=== PATIENT | male | born 1995 | race Two or more races ===

== ENCOUNTER 2022-06-16 03:48 | Emergency (ER) | payer MEDICAID, SELFPAY ==
[2022-06-16 04:05] VITALS: BP 132/93; PULSE 78; RESP 18; TEMP 36.8; O2SAT 98; BMI 31.0
[2022-06-16 05:16] VITALS: BP 145/82; PULSE 88; RESP 22; TEMP 36.9; O2SAT 99
[2022-06-16 05:19] LABS: Basophils Absolute Auto 0.1 X10*3/uL (0.0-0.2); Basophils Percent Auto 0.8 % (0-2); Eosinophils Absolute Auto 0.2 X10*3/uL (0.0-0.4); Eosinophils Percent Auto 1.8 % (0-4); Hematocrit 47.2 % (42.0-52.0); Hemoglobin 15.6 g/dl (14.0-18.0); Imm Gran Abs Auto 0.06 X10*3/uL (0.00-0.03); Imm Gran Pct Auto 0.5 % (0.0-0.4); Lymphocytes Absolute Auto 3.2 X10*3/uL (1.2-4.9); Lymphocytes Percent Auto 25.7 % (20-40); MANUAL DIFF FLAG NO; Mean Corpuscular HGB Conc 33.1 g/dl (31.0-36.0); Mean Corpuscular Hemoglobin 26.5 pg (27.0-33.0); Mean Corpuscular Volume 80.1 fL (80.0-98.0); Mean Platelet Volume 10.1 fL (9.4-12.4); Monocytes Absolute Auto 0.6 X10*3/uL (0.1-1.2); Monocytes Percent Auto 4.4 % (2-11); Neutrophils Absolute Auto 8.4 x10*3/uL (2.0-8.3); Neutrophils Percent Auto 66.8 % (45-73); Platelet Count 272 X10*3/uL (160-400); Red Blood Count 5.89 X10*6/uL (4.60-5.80); Red Cell Distribution Width 15.3 % (11.0-16.0); White Blood Count 12.6 X10*3/uL (4.8-10.8)
[2022-06-16 05:39] LABS: Influenza A PCR NEGATIVE (Negative); Influenza B PCR NEGATIVE (Negative); Resp Syncy Virus RNA Qual PCR NEGATIVE (Negative); SARS COV2 PCR INHOUSE NEGATIVE (Negative)
--- NOTE | 2022-06-16 05:46 | ED_ITS ---
HPI - Headache General Chief Complaint: Headache Stated Complaint: migraine, n/v, acid reflux Time Seen by Provider: 06/16/22 05:03 Source: patient Mode of arrival: ambulatory History of Present Illness HPI Narrative: 26-year-old male with history migraine states that he developed a migraine yesterday that was normal in onset and progression and patient states that he took Excedrin, a total of 7 and then afterwards began developing epigastric discomfort with episodes of nausea and vomiting and did not contain blood. Otherwise, he denies any fever, chills, diarrhea. Related Data Previous Rx's Medication Instructions Recorded ketorolac 10 mg tablet 10 mg PO Q6H PRN pain 5 days #20 06/16/22 tabs Allergies Allergy/AdvReac Type Severity Reaction Status Date / Time SEASONAL ALLERGIES Allergy Unknown SNEEZING, Uncoded 06/16/22 04:05 ITCHY EYES Review of Systems Review of Systems: Pertinent positives and negatives as stated in HPI 10 point review of systems is otherwise negative. PMFSH Past Medical History Source: nursing notes reviewed Social History Social History Alcohol intake: current Alcohol intake frequency: a few times a month Smoked in Last 30 Days: Yes Use of substances other than those prescribed or required for medical reasons: Yes Substance Use Type: Marijuana Advance Directives: No Advance Directives Information Provided: No Physical Exam Vital Signs: Vital Signs: Last Vital Signs Temp 98.2 F 06/16/22 05:59 Pulse 93 06/16/22 05:59 Resp 18 06/16/22 05:59 BP 151/83 H 06/16/22 05:59 Pulse Ox 99 06/16/22 05:59 O2 Del Method 06/16/22 05:59 BMI result Body Mass Index 31.0 VITAL SIGNS: Reviewed. GENERAL: Well developed, well nourished, in moderate distress. HEAD: Normocephalic/atraumatic EYES: PERRLA, EOMI EARS: Ext canals without abnormality OROPHARYNX: no oral lesions noted, posterior pharynx clear LUNGS: Normal breath sounds. No adventitious sounds or accessory muscle use. SpO2<99> CARDIOVASCULAR: Regular rate and rhythm without noted murmurs ABDOMEN: Soft, non-tender, non-distended with bowel sounds. MUSCULOSKELETAL: No tenderness, deformities, or effusions noted on gross inspection. EXTREMITIES: No cyanosis, clubbing or edema. SKIN: Inspection of the skin reveals no rashes NEUROLOGIC: Alert and oriented x 4. Strength and sensation to light touch were grossly intact x 4. Course Course Course Narrative: 26-year-old male with history and clinical presentation consistent with initial headache that then was likely or treated with Excedrin leading to GI upset/gastritis as well as nausea and vomiting. I did check salicylate level which was undetectable, otherwise lab work is benign with a leukocytosis that is being attributed to stress/reactive response as patient is afebrile. Patient will receive IV fluids, Reglan/Benadryl/Zofran and once stomach settled will attempt GI cocktail. On re-evaluation patient is resting comfortably although he did vomit the GI cocktail I suspect that on attempting again patient will likely be able to tolerate. Will provide patient with a list of primary care providers and he is otherwise discharged home in stable condition. Medications Administered Discontinued Medications Generic Name Dose Route Start Last Admin Trade Name Freq PRN Reason Stop Dose Admin Al Hydroxide/Mg Hydroxide 30 ml 06/16/22 05:45 06/16/22 05:53 Magnesium Hydrox/Alum Hydrox 30 Ml Oral.Susp PO 06/16/22 05:46 30 ml ONCE ONE Administration Diphenhydramine HCl 25 mg 06/16/22 05:45 06/16/22 05:53 Diphenhydramine Hcl 50 Mg/Ml Vial IVPUSH 06/16/22 05:46 25 mg ONCE ONE Administration Sodium Chloride 1,000 mls @ 999 mls/hr 06/16/22 05:45 06/16/22 07:11 Ns IV 06/16/22 06:45 Infused .Q1H1M MAYLIN Infusion Lidocaine HCl 10 ml 06/16/22 05:45 06/16/22 05:53 Lidocaine Hcl Viscous 2 % 15 Ml Solution MUCOUS MEM 06/16/22 05:46 10 ml ONCE ONE Administration Metoclopramide HCl 10 mg 06/16/22 05:45 06/16/22 05:53 Metoclopramide Hcl 10 Mg/2 Ml Vial IVPUSH 06/16/22 05:46 10 mg ONCE ONE Administration Ondansetron HCl 4 mg 06/16/22 05:45 06/16/22 05:53 Ondansetron Hcl 4 Mg/2 Ml Vial IVPUSH 06/16/22 05:46 4 mg ONCE ONE Administration Medical Decision Making Lab Data Result Diagrams: 06/16/22 05:14 06/16/22 05:30 Labs: Lab Results 06/16/22 06/16/22 06/16/22 Range/Units 04:59 05:14 05:30 WBC 12.6 H (4.8-10.8) X10*3/uL RBC 5.89 H (4.60-5.80) X10*6/uL Hgb 15.6 (14.0-18.0) g/dl Hct 47.2 (42.0-52.0) % MCV 80.1 (80.0-98.0) fL MCH 26.5 L (27.0-33.0) pg MCHC 33.1 (31.0-36.0) g/dl RDW 15.3 (11.0-16.0) % Plt Count 272 (160-400) X10*3/uL MPV 10.1 (9.4-12.4) fL Immature Gran % (Auto) 0.5 H (0.0-0.4) % Neut % (Auto) 66.8 (45-73) % Lymph % (Auto) 25.7 (20-40) % [place] % (Auto) 4.4 (2-11) % Eos % (Auto) 1.8 (0-4) % Baso % (Auto) 0.8 (0-2) % Lymph # (Auto) 3.2 (1.2-4.9) X10*3/uL [place] # (Auto) 0.6 (0.1-1.2) X10*3/uL Eos # (Auto) 0.2 (0.0-0.4) X10*3/uL Baso # (Auto) 0.1 (0.0-0.2) X10*3/uL Abs Immat Gran (auto) 0.06 H (0.00-0.03) X10*3/uL Absolute Neuts (auto) 8.4 H (2.0-8.3) x10*3/uL Absolute Nucleated RBC 0.000 (0.0-0.012) X10*3/uL Nucleated RBC % (auto) 0.0 (0.0-0.2) /100WBC Sodium 137 (135-145) mmol/L Potassium 3.5 (3.3-5.1) mmol/L Chloride 99 (96-108) mmol/L Carbon Dioxide 25 (22-29) mmol/L Anion Gap 17 (12-20) BUN 17 H (9-16) mg/dL Creatinine 1.08 (0.5-1.4) mg/dL Estim Creat Clear Calc 118.0 Estimated GFR > 60 Random Glucose 129 H (60-115) mg/dL Calcium 9.8 (8.4-10.2) mg/dL Total Bilirubin 0.8 (0.0-1.0) mg/dL AST 26 (5-37) U/L ALT 36 (0-40) U/L Alkaline Phosphatase 91 (39-117) U/L Total Protein 8.3 H (6.5-8.0) g/dL Albumin 5.2 H (3.5-5.0) g/dL Lipase 13 (8-78) U/L Salicylates < 5.0 L (15-30) mg/dL Influenza Type A (PCR) NEGATIVE (Negative) Influenza Type B (PCR) NEGATIVE (Negative) RSV RNA Qual (PCR) NEGATIVE (Negative) SARS-CoV-2 RNA (RT-PCR) NEGATIVE (Negative) Discharge Plan Discharge Clinical Impression: Headache, Gastritis Patient Disposition: Home, Self-Care Instructions: Gastritis (ED), Diet for Stomach Ulcers and Gastritis (ED), General Headache (ED) Additional Instructions: 1. Tylenol 1000 mg, orally, every 6 hours as needed for pain control. Do not exceed 4000 mg within 24 hours. 2. Increase the amount of water intake. 3. You have been provided with a list potential primary care providers that are associated with [facility]. Return to the ER for worsening symptoms. Prescriptions: New ketorolac 10 mg tablet 10 mg PO Q6H PRN (Reason: pain) 5 Days Qty: 20 0RF Rx Instructions: Patient received Toradol in the emergency room.
[2022-06-16] MEDS: 0.9 % Sodium Chloride 1,000 ML 999 ML IV (05:52)
[2022-06-16] MEDS: Lidocaine HCl Viscous 2 % 15 ML SOLUTION 10 ML MUCOUS MEM (05:53)
[2022-06-16] MEDS: Metoclopramide HCl 10 MG/2 ML VIAL IVPUSH (05:53)
[2022-06-16] MEDS: diphenhydrAMINE HCL 50 MG/ML VIAL 25 MG IVPUSH (05:53)
[2022-06-16] MEDS: Magnesium Hydrox/Alum Hydrox 30 ML ORAL.SUSP PO (05:53)
[2022-06-16] MEDS: ondansetron HCL 4 MG/2 ML VIAL IVPUSH (05:53)
[2022-06-16 05:59] VITALS: BP 151/83; PULSE 93; RESP 18; TEMP 36.8; O2SAT 99
[2022-06-16 05:59] LABS: Alanine Aminotransferase 36 U/L (0-40); Albumin Level 5.2 g/dL (3.5-5.0); Alkaline Phosphatase 91 U/L (39-117); Anion Gap 17 (12-20); Aspartate Amino Transferase 26 U/L (5-37); Bilirubin Total 0.8 mg/dL (0.0-1.0); Blood Urea Nitrogen 17 mg/dL (9-16); Calcium 9.8 mg/dL (8.4-10.2); Carbon Dioxide 25 mmol/L (22-29); Chloride 99 mmol/L (96-108); Estimated Glomerular Filt Rate > 60; Glucose Random 129 mg/dL (60-115); Lipase 13 U/L (8-78); Potassium 3.5 mmol/L (3.3-5.1); Sodium 137 mmol/L (135-145); Total Protein 8.3 g/dL (6.5-8.0)
[2022-06-16 06:04] LABS: Salicylate < 5.0 mg/dL (15-30)
[2022-06-16 07:36] VITALS: BP 122/71; PULSE 75; RESP 16; O2SAT 99
[2022-06-16] MEDS: Ketorolac Tromethamine 30 MG/ML VIAL 15 MG IVPUSH (07:38)
[2022-06-16] MEDS: Sucralfate Oral Suspension 1 GM/10 ML ORAL.SUSP PO (07:38)
== END 2022-06-16 07:54 | disposition home or self-care (01) ==
PROVIDERS: Emergency Provider Student in an Organized Health Care Education/Training Program
DX: K29.00 Acute gastritis without bleeding (principal); R51.9 Headache, unspecified; Z20.822 Contact with and (suspected) exposure to COVID-19; Z79.899 Other long term (current) drug therapy
CPT/HCPCS: 0241U; 36415; 80053; 80179; 83690; 85025; 96361; 96374; 96375; 99284; 99285; J1200; J1885; J2405; J2765

== ENCOUNTER 2022-07-21 19:54 | Emergency (ER) | payer OTHER, SELFPAY ==
[2022-07-21 20:32] VITALS: BP 169/100; PULSE 102; RESP 20; TEMP 36.6; O2SAT 98; BMI 26.6
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
[2022-07-21] MEDS: Ketorolac Tromethamine 30 MG/ML VIAL IM (21:00)
[2022-07-21] MEDS: Lidocaine 4 % Patch ADH..PATCH 1 PATCH TRANSDERMA (21:00)
== END 2022-07-21 21:13 | disposition home or self-care (01) ==
PROVIDERS: Emergency Provider Emergency Medicine
DX: S39.012A Strain of muscle, fascia and tendon of lower back, initial encounter (principal); V43.62XA Car passenger injured in collision with other type car in traffic accident, initial encounter; Y93.89 Activity, other specified; Y92.414 Local residential or business street as the place of occurrence of the external cause; Y99.9 Unspecified external cause status
CPT/HCPCS: 96372; 99283; 99284; J1885

== ENCOUNTER 2022-12-27 08:47 | Emergency (ER) | payer MEDICAID, SELFPAY ==
[2022-12-27 09:01] VITALS: BP 113/76; PULSE 67; RESP 19; TEMP 36.6; O2SAT 98; BMI 29.5
--- NOTE | 2022-12-27 09:23 | ED.GENADULT ---
HPI - General Adult General Chief complaint: General Medical Stated complaint: thyroid meds ? Time Seen by Provider: 12/27/22 09:05 Source: patient Mode of arrival: ambulatory Limitations: no limitations History of Present Illness HPI narrative: Patient is a 27-year-old male with history of hypothyroid presenting to the emergency department with complaint of fatigue, bilateral hand swelling, mild facial swelling after running out of this levothyroxine 2 months ago. States he has not had a PCP in 5 years but that his pharmacy had continued to fill his medication. Denies any significant weight gain. He was incarcerated for approximatey 2 years and was medicated while there, was released 5 months ago with a 3 month supply. States he has attempted to establish care with a new PCP but does not currently have a follow up appointment scheduled. Denies any chest pain or shortness of breath, denies palpitations. Denies any lower extremity edema. MD complaint: fatigue, hand swelling Onset (ago): month(s) Location: upper extremity Radiation: non-radiation Severity: mild Relieving factors: none Exacerbating factors: none Associated symptoms: denies other symptoms Treatments prior to arrival: none Related Data Previous Rx's Medication Instructions Recorded ketorolac 10 mg tablet 10 mg PO Q6H PRN pain 5 days #20 06/16/22 tabs cyclobenzaprine 10 mg tablet 10 mg PO TID PRN muscle spasm #14 07/21/22 tabs ibuprofen 600 mg tablet 600 mg PO Q8H PRN pain #14 tabs 07/21/22 lidocaine 5 % topical patch 1 patch topical DAILY #15 ea 07/21/22 levothyroxine 200 mcg capsule 200 mcg PO DAILY #30 caps 12/27/22 Allergies Allergy/AdvReac Type Severity Reaction Status Date / Time SEASONAL ALLERGIES Allergy Unknown SNEEZING, Uncoded 12/27/22 09:01 ITCHY EYES Review of Systems Review of Systems: As per HPI. Yes all other systems are reviewed and are negative Constitutional: Constitutional: Reports as per HPI [facility] Social History Social History Alcohol intake: current Alcohol intake frequency: a few times a month Substance Use Type: Marijuana Advance Directives: No Advance Directives Information Provided: Yes Physical Exam ED Vital Signs: Vital Signs - 24 hr 12/27/22 09:01 Temperature 98 F Pulse Rate 67 Respiratory Rate 19 Blood Pressure 113/76 Pulse Oximetry 98 Oxygen Delivery Method Room Air BMI result Body Mass Index 29.5 Vital signs have been reviewed and appear to be correct. Blood pressure normal. Heart rate normal. Respiratory rate normal. Temperature normal. Oxygen saturation normal. Const General: cooperative, healthy appearing and no acute distress Orientation/consciousness: oriented to person, oriented to place, oriented to time and patient oriented x3 Limitations: no limitations HENMT Other: Very mild nonpitting facial edema appreciated Head: Yes normocephalic and Yes atraumatic Ears: external ears normal General nose exam: Normal external nose present Face and sinus: Yes face symmetric Mouth: oropharynx normal and moist mucous membranes Throat: Yes uvula midline Eyes General: appearance normal, both eyes and all related structures Pupils: Equal, round and reactive pupils present Neck Neck: Yes normal visual inspection and Yes supple Resp Effort & Inspection: normal respiratory effort and able to speak in complete sentences Auscultation: clear to auscultation bilaterally Cardio Rate: regular rate Rhythm: regular rhythm Heart sounds: S1 normal heart sound present and S2 normal heart sound present GI Palpation (GI): Soft to palpation and nontender Auscultation: normoactive bowel sounds General: Yes no CVA tenderness Back/Spine/Pelvis Back: no CVA tenderness Skin General skin exam: elasticity normal and turgor normal Neuro General: oriented to person, oriented to place, oriented to time, patient oriented x3, moves all extremities, no focal motor deficits and CN's II-XI intact bilaterally Cranial nerves: Yes Equal, round and reactive pupils present Cognition (Neuro): normal cognition Extrem General: Yes full ROM, Yes no pedal edema and Yes no calf tenderness Right upper extremity: Extremity exam: right hand Details: abnormal to inspection (mild non-pitting edema) Left upper extremity: hand Details: abnormal to inspection (mild non-pitting edema) Psych Mental Status: mental status grossly normal Affect: normal affect Thought process: Normal thought process present Medical Decision Making Medical Decision Making MDM Narrative: Patient is a 27-year-old male with history of hypothyroid presenting to the emergency department with complaint of fatigue, bilateral hand swelling, mild facial swelling after running out of this levothyroxine 2 months ago. On exam patient is awake, A+Ox3, VS WNL, afebrile, normal neurological exam without focal deficits, very slight facial edema appreciated, mild non-pitting edema to bilateral hands, LS CTA, abdomen is soft and nontender, no lower extremity edema. Given reported symptoms and physical exam findings, differential includes abnormal TSH, electrolyte abnormality, impaired renal function. Plan: CBC, BMP, TSH with reflex T4 Labs notable for elevated TSH with low free T4, otherwise unremarkable. Will medicate patient with levothyroxine here per his request and prescribe 30 day supply. Last dose filled in June of this year was 200mcg daily. Instructed patient to continue to attempt to establish care with PCP and set up initial visit. Will also refer to endocrinology. Return precautions discussed at bedside. Patient verbalized understanding of and agreement with plan. Differential Diagnosis Differential Diagnoses: The differential diagnosis associated with the presentation includes abnormal TSH, electrolyte abnormality, impaired renal function. Lab Data MDM Lab Attestation statement: I reviewed the patient's lab results. See above. 12/27/22 09:45 12/27/22 09:46 Labs: Lab Results 12/27/22 12/27/22 Range/Units 09:45 09:46 WBC 7.6 (4.8-10.8) X10*3/uL RBC 5.18 (4.60-5.80) X10*6/uL Hgb 14.7 (14.0-18.0) g/dl Hct 43.6 (42.0-52.0) % MCV 84.2 (80.0-98.0) fL MCH 28.4 (27.0-33.0) pg MCHC 33.7 (31.0-36.0) g/dl RDW 16.6 H (11.0-16.0) % Plt Count 261 (160-400) X10*3/uL MPV 10.5 (9.4-12.4) fL Immature Gran % (Auto) 0.3 (0.0-0.4) % Neut % (Auto) 46.8 (45-73) % Lymph % (Auto) 44.3 H (20-40) % [place] % (Auto) 4.3 (2-11) % Eos % (Auto) 3.4 (0-4) % Baso % (Auto) 0.9 (0-2) % Lymph # (Auto) 3.4 (1.2-4.9) X10*3/uL [place] # (Auto) 0.3 (0.1-1.2) X10*3/uL Eos # (Auto) 0.3 (0.0-0.4) X10*3/uL Baso # (Auto) 0.1 (0.0-0.2) X10*3/uL Abs Immat Gran (auto) 0.02 (0.00-0.03) X10*3/uL Absolute Neuts (auto) 3.6 (2.0-8.3) x10*3/uL Absolute Nucleated RBC 0.000 (0.0-0.012) X10*3/uL Nucleated RBC % (auto) 0.0 (0.0-0.2) /100WBC Sodium 141 (135-145) mmol/L Potassium 3.9 (3.3-5.1) mmol/L Chloride 106 (96-108) mmol/L Carbon Dioxide 24 (22-29) mmol/L Anion Gap 15 (12-20) BUN 18 H (9-16) mg/dL Creatinine 1.24 (0.5-1.4) mg/dL Estim Creat Clear Calc 99.6 Estimated GFR > 60 Random Glucose 96 (60-115) mg/dL Calcium 9.7 (8.4-10.2) mg/dL TSH 33.72 H (0.32-4.0) uIU/mL Free T4 < 0.42 L (0.71-1.85) ng/dL External Record Review External record reviewed: Inpatient record, Office record and Outpatient record Prescription Management I considered prescription management with: Other (levothyroxine) Chronic Conditions Patient?s care impacted by: Other (hypothyroid) Discharge Plan Discharge Clinical Impression: Abnormal finding on thyroid function test Patient Disposition: Home, Self-Care Instructions: Hypothyroidism (ED) Additional Instructions: You were evaluated in the emergency department today after running out of your thyroid medication. Your prescription is being filled for a 30 day supply. It is important that you establish care with a primary care provider immediately. You are also being referred to endocrinology, please contact them on Thursday. Prescriptions: New levothyroxine 200 mcg capsule 200 mcg PO DAILY Qty: 30 0RF No Action cyclobenzaprine 10 mg tablet 10 mg PO TID PRN (Reason: muscle spasm) Qty: 14 0RF ibuprofen 600 mg tablet 600 mg PO Q8H PRN (Reason: pain) Qty: 14 0RF lidocaine 5 % adhesive patch,medicated 1 patch topical DAILY Qty: 15 0RF Rx Instructions: leave on most painful area for up to 12 hrs ketorolac 10 mg tablet 10 mg PO Q6H PRN (Reason: pain) 5 Days Qty: 20 0RF Rx Instructions: Patient received Toradol in the emergency room. Referrals: [facility] [Provider Group]
== END 2022-12-27 11:37 | disposition home or self-care (01) ==
PROVIDERS: Emergency Provider Emergency Medicine Emergency Medical Services
DX: E03.9 Hypothyroidism, unspecified (principal); Z76.0 Encounter for issue of repeat prescription
CPT/HCPCS: 36415; 80048; 84439; 84443; 85025; 99283

== ENCOUNTER 2023-03-15 19:50 | Emergency (ER) | payer MEDICAID, SELFPAY ==
[2023-03-15 20:01] VITALS: BP 141/79; PULSE 82; RESP 20; TEMP 36.6; O2SAT 99; BMI 27.4
--- NOTE | 2023-03-15 20:06 | ED.GENADULT ---
HPI - General Adult General Chief complaint: General Medical Stated complaint: needs thyroid med Time Seen by Provider: 03/15/23 22:23 Source: patient Mode of arrival: ambulatory Limitations: no limitations History of Present Illness HPI narrative: Patient is a 27-year-old male with history of hypothyroid presenting to the emergency department with complaint of decreased appetite, intermittent diarrhea and sweating after running out of his thyroid medication. Patient was seen in this emergency department for same on 12/27/2022 and given a 30 day supply of his thyroid medication. Patient reports that he had an appointment with a new primary care provider on Thursday but did not realize that he needed to confirm the appointment and therefore the appointment was canceled. He states that he has since call the office to clarify and they are working on obtaining an appointment for him this coming week. He denies any chest pain, palpitations, or shortness of breath. Denies any significant weight loss or gain. Denies any abdominal pain, nausea or vomiting. Denies fevers. complaint: Ran out of medication Onset (ago): week(s) Treatments prior to arrival: none Related Data Previous Rx's Medication Instructions Recorded ketorolac 10 mg tablet 10 mg PO Q6H PRN pain 5 days #20 06/16/22 tabs cyclobenzaprine 10 mg tablet 10 mg PO TID PRN muscle spasm #14 07/21/22 tabs ibuprofen 600 mg tablet 600 mg PO Q8H PRN pain #14 tabs 07/21/22 lidocaine 5 % topical patch 1 patch topical DAILY #15 ea 07/21/22 levothyroxine 200 mcg capsule 200 mcg PO DAILY #30 caps 12/27/22 levothyroxine 200 mcg capsule 200 mcg PO DAILY #30 caps 03/15/23 Allergies Allergy/AdvReac Type Severity Reaction Status Date / Time SEASONAL ALLERGIES Allergy Unknown SNEEZING, Uncoded 03/15/23 20:01 ITCHY EYES Review of Systems Review of Systems: As per HPI. Yes all other systems are reviewed and are negative Constitutional: Constitutional: Reports as per HPI [facility] Social History Social History Alcohol intake: current Alcohol intake frequency: a few times a month Smoked in Last 30 Days: No Use of substances other than those prescribed or required for medical reasons: Yes Substance Use Type: Marijuana Advance Directives: No Physical Exam ED Vital Signs: Vital Signs - 24 hr 03/15/23 20:01 Temperature 98 F Pulse Rate 82 Respiratory Rate 20 Blood Pressure 141/79 H Pulse Oximetry 99 Oxygen Delivery Method Room Air BMI result Body Mass Index 27.4 Vital signs have been reviewed and appear to be correct. Blood pressure slightly elevated. Heart rate normal. Respiratory rate normal. Temperature normal. Oxygen saturation normal. Const General: cooperative, healthy appearing and no acute distress Orientation/consciousness: oriented to person, oriented to place, oriented to time and patient oriented x3 Limitations: no limitations HENMT Head: Yes normocephalic and Yes atraumatic Ears: external ears normal General nose exam: Normal external nose present Face and sinus: Yes face symmetric Mouth: oropharynx normal and moist mucous membranes Throat: Yes uvula midline Eyes Pupils: Equal, round and reactive pupils present Neck Neck: Yes normal visual inspection and Yes supple Resp Effort & Inspection: normal respiratory effort and able to speak in complete sentences Auscultation: clear to auscultation bilaterally Cardio Rate: regular rate Rhythm: regular rhythm Heart sounds: S1 normal heart sound present and S2 normal heart sound present GI Palpation (GI): Soft to palpation and nontender Auscultation: normoactive bowel sounds General: Yes no CVA tenderness Back/Spine/Pelvis Back: no CVA tenderness Skin General skin exam: elasticity normal and turgor normal Neuro General: oriented to person, oriented to place, oriented to time, patient oriented x3, moves all extremities, no focal motor deficits and CN's II-XI intact bilaterally Cranial nerves: Yes Equal, round and reactive pupils present Cognition (Neuro): normal cognition Extrem General: Yes full ROM, Yes no pedal edema and Yes no calf tenderness Psych Mental Status: mental status grossly normal Affect: normal affect Thought process: Normal thought process present Course Course Course Narrative: RME: 27 yold male presents to the ED for medicatoin refill of levothyroxine and diarrhea, sweating, and loss of appeitite. patient states he has been without his LEvothryoxine for one month. Medical Decision Making Medical Decision Making [facility] Narrative: Patient is a 27-year-old male with history of hypothyroid presenting to the emergency department with complaint of decreased appetite, intermittent diarrhea and sweating after running out of his thyroid medication. On exam patient is awake, A+Ox3, VS WNL, afebrile, normal neurological exam without focal deficits, rate rhythm regular, lungs clear throughout, abdomen soft and nontender, no lower extremity edema. Given reported symptoms and physical exam findings, initial differential includes normal TSH, electrolyte abnormality, impaired renal function. Labs notable for elevated TSH with low free T4, otherwise unremarkable, COVID negative. Will prescribe another 30 day supply of levothyroxine at patient's previous dose. Instructed patient to continue to remain in contact with his new primary care office to obtain an appointment as soon as possible. Will again refer to endocrinology. Return precautions discussed at bedside. Patient verbalized understanding of and agreement with plan. Differential Diagnosis Differential Diagnoses: The differential diagnosis associated with the presentation includes As per [facility]. Lab Data [facility] Lab Attestation statement: I reviewed the patient's lab results. As per [facility]. 03/15/23 20:49 03/15/23 20:49 Labs: Lab Results 03/15/23 Range/Units 20:49 WBC 12.8 H (4.8-10.8) X10*3/uL RBC 4.68 (4.60-5.80) X10*6/uL Hgb 13.4 L (14.0-18.0) g/dl Hct 40.6 L (42.0-52.0) % MCV 86.8 (80.0-98.0) fL MCH 28.6 (27.0-33.0) pg MCHC 33.0 (31.0-36.0) g/dl RDW 13.9 (11.0-16.0) % Plt Count 302 (160-400) X10*3/uL MPV 9.7 (9.4-12.4) fL Immature Gran % (Auto) 0.3 (0.0-0.4) % Neut % (Auto) 62.8 (45-73) % Lymph % (Auto) 28.1 (20-40) % Morris % (Auto) 4.8 (2-11) % Eos % (Auto) 3.3 (0-4) % Baso % (Auto) 0.7 (0-2) % Lymph # (Auto) 3.6 (1.2-4.9) X10*3/uL Morris # (Auto) 0.6 (0.1-1.2) X10*3/uL Eos # (Auto) 0.4 (0.0-0.4) X10*3/uL Baso # (Auto) 0.1 (0.0-0.2) X10*3/uL Abs Immat Gran (auto) 0.04 H (0.00-0.03) X10*3/uL Absolute Neuts (auto) 8.0 (2.0-8.3) x10*3/uL Absolute Nucleated RBC 0.000 (0.0-0.012) X10*3/uL Nucleated RBC % (auto) 0.0 (0.0-0.2) /100WBC Sodium 139 (135-145) mmol/L Potassium 4.1 (3.3-5.1) mmol/L Chloride 101 (96-108) mmol/L Carbon Dioxide 28 (22-29) mmol/L Anion Gap 14 (12-20) BUN 15 (9-16) mg/dL Creatinine 1.07 (0.5-1.4) mg/dL Estim Creat Clear Calc 100.3 Estimated GFR > 60 Random Glucose 109 (60-115) mg/dL Calcium 10.0 (8.4-10.2) mg/dL Total Bilirubin 0.5 (0.0-1.0) mg/dL AST 17 (5-37) U/L ALT 12 (0-40) U/L Alkaline Phosphatase 55 (39-117) U/L Total Protein 7.9 (6.5-8.0) g/dL Albumin 4.6 (3.5-5.0) g/dL TSH 42.65 H (0.32-4.0) uIU/mL Free T4 < 0.42 L (0.71-1.85) ng/dL COVID-19 ([facility]ETH) Negative (Negative) COVID-19 Clin Com See Note External Record Review External record reviewed: Inpatient record, Office record and Outpatient record Prescription Management I considered prescription management with: Other (Levothyroxine) Chronic Conditions Patient?s care impacted by: Other (Hypothyroidism) Discharge Plan Discharge Clinical Impression: Abnormal finding on thyroid function test Patient Disposition: Home, Self-Care Instructions: Hypothyroidism (ED) Additional Instructions: You were evaluated in the emergency department today after running out of your thyroid medication. Your prescription is being filled for 30 day supply. It is important that you continue to attempt to establish care with a primary care provider immediately. You are again being referred to endocrinology and you can contact them if you are unable to obtain appointment with your primary care provider. Prescriptions: New levothyroxine 200 mcg capsule 200 mcg PO DAILY Qty: 30 0RF No Action cyclobenzaprine 10 mg tablet 10 mg PO TID PRN (Reason: muscle spasm) Qty: 14 0RF ibuprofen 600 mg tablet 600 mg PO Q8H PRN (Reason: pain) Qty: 14 0RF lidocaine 5 % adhesive patch,medicated 1 patch topical DAILY Qty: 15 0RF Rx Instructions: leave on most painful area for up to 12 hrs ketorolac 10 mg tablet 10 mg PO Q6H PRN (Reason: pain) 5 Days Qty: 20 0RF Rx Instructions: Patient received Toradol in the emergency room. levothyroxine 200 mcg capsule 200 mcg PO DAILY Qty: 30 0RF Referrals: [facility] [Provider Group] Discharge Date/Time: 03/15/23 23:25
[2023-03-15 20:54] LABS: MANUAL DIFF FLAG NO
[2023-03-15 20:55] LABS: Basophils Absolute Auto 0.1 X10*3/uL (0.0-0.2); Basophils Percent Auto 0.7 % (0-2); Eosinophils Absolute Auto 0.4 X10*3/uL (0.0-0.4); Eosinophils Percent Auto 3.3 % (0-4); Hematocrit 40.6 % (42.0-52.0); Hemoglobin 13.4 g/dl (14.0-18.0); Imm Gran Abs Auto 0.04 X10*3/uL (0.00-0.03); Imm Gran Pct Auto 0.3 % (0.0-0.4); Lymphocytes Absolute Auto 3.6 X10*3/uL (1.2-4.9); Lymphocytes Percent Auto 28.1 % (20-40); Mean Corpuscular Hemoglobin 28.6 pg (27.0-33.0); Mean Corpuscular Volume 86.8 fL (80.0-98.0); Mean Platelet Volume 9.7 fL (9.4-12.4); Monocytes Absolute Auto 0.6 X10*3/uL (0.1-1.2); Monocytes Percent Auto 4.8 % (2-11); Neutrophils Percent Auto 62.8 % (45-73); Platelet Count 302 X10*3/uL (160-400); Red Blood Count 4.68 X10*6/uL (4.60-5.80); Red Cell Distribution Width 13.9 % (11.0-16.0); White Blood Count 12.8 X10*3/uL (4.8-10.8)
[2023-03-15 21:12] LABS: COVID-19 Test Negative (Negative); IDNOW Serial# 08D9AD1C
[2023-03-15 21:24] LABS: Alanine Aminotransferase 12 U/L (0-40); Albumin Level 4.6 g/dL (3.5-5.0); Alkaline Phosphatase 55 U/L (39-117); Anion Gap 14 (12-20); Aspartate Amino Transferase 17 U/L (5-37); Bilirubin Total 0.5 mg/dL (0.0-1.0); Blood Urea Nitrogen 15 mg/dL (9-16); Carbon Dioxide 28 mmol/L (22-29); Chloride 101 mmol/L (96-108); Creatinine Clr Calc Pharmacy 100.3; Estimated Glomerular Filt Rate > 60; Glucose Random 109 mg/dL (60-115); Potassium 4.1 mmol/L (3.3-5.1); Sodium 139 mmol/L (135-145); Total Protein 7.9 g/dL (6.5-8.0)
[2023-03-15 21:38] LABS: TSH reflex Free T4 42.65 uIU/mL (0.32-4.0)
[2023-03-15 22:17] LABS: Free T4 (Free Thyroxine) < 0.42 ng/dL (0.71-1.85)
--- NOTE | 2023-03-15 22:40 | PC.NURSE ---
Pt denies pain, states started thyroid medication X10 years ago, pt states hasn't taken prescribed dose X2 months due to insurance purposes.
== END 2023-03-15 23:25 | disposition home or self-care (01) ==
PROVIDERS: Physician Assistant; Emergency Provider Internal Medicine
DX: R79.89 Other specified abnormal findings of blood chemistry (principal); Z20.822 Contact with and (suspected) exposure to COVID-19; Z20.828 Contact with and (suspected) exposure to other viral communicable diseases; Z79.899 Other long term (current) drug therapy
CPT/HCPCS: 36415; 80053; 84439; 84443; 85025; 87635; 99283

== ENCOUNTER 2023-07-12 11:06 | Emergency (ER) | payer MEDICAID, SELFPAY ==
[2023-07-12 12:04] VITALS: BP 141/90; PULSE 82; RESP 12; TEMP 37.1; O2SAT 98; BMI 27.4
[2023-07-12 12:50] LABS: MANUAL DIFF FLAG NO
[2023-07-12 12:51] LABS: Basophils Absolute Auto 0.1 X10*3/uL (0.0-0.2); Basophils Percent Auto 1.1 % (0-2); Eosinophils Absolute Auto 0.2 X10*3/uL (0.0-0.4); Eosinophils Percent Auto 2.9 % (0-4); Hematocrit 44.8 % (42.0-52.0); Hemoglobin 15.1 g/dl (14.0-18.0); Imm Gran Abs Auto 0.04 X10*3/uL (0.00-0.03); Imm Gran Pct Auto 0.5 % (0.0-0.4); Lymphocytes Absolute Auto 3.2 X10*3/uL (1.2-4.9); Lymphocytes Percent Auto 38.1 % (20-40); Mean Corpuscular HGB Conc 33.7 g/dl (31.0-36.0); Mean Corpuscular Hemoglobin 28.8 pg (27.0-33.0); Mean Corpuscular Volume 85.5 fL (80.0-98.0); Mean Platelet Volume 9.8 fL (9.4-12.4); Monocytes Absolute Auto 0.4 X10*3/uL (0.1-1.2); Monocytes Percent Auto 4.6 % (2-11); Neutrophils Absolute Auto 4.4 x10*3/uL (2.0-8.3); Neutrophils Percent Auto 52.8 % (45-73); Platelet Count 249 X10*3/uL (160-400); Red Blood Count 5.24 X10*6/uL (4.60-5.80); Red Cell Distribution Width 15.9 % (11.0-16.0); White Blood Count 8.3 X10*3/uL (4.8-10.8)
[2023-07-12 13:12] LABS: Alanine Aminotransferase 40 U/L (0-40); Albumin Level 5.1 g/dL (3.5-5.0); Alkaline Phosphatase 51 U/L (39-117); Anion Gap 16 (12-20); Aspartate Amino Transferase 85 U/L (5-37); Bilirubin Total 0.6 mg/dL (0.0-1.0); Blood Urea Nitrogen 15 mg/dL (9-16); Calcium 9.8 mg/dL (8.4-10.2); Carbon Dioxide 26 mmol/L (22-29); Chloride 103 mmol/L (96-108); Creatinine Clr Calc Pharmacy 79.5; Estimated Glomerular Filt Rate > 60; Glucose Random 94 mg/dL (60-115); Potassium 3.6 mmol/L (3.3-5.1); Sodium 141 mmol/L (135-145); Total Protein 8.7 g/dL (6.5-8.0)
[2023-07-12 13:26] LABS: TSH reflex Free T4 33.16 uIU/mL (0.32-4.0)
[2023-07-12 14:59] LABS: Free T4 (Free Thyroxine) < 0.42 ng/dL (0.71-1.85)
--- NOTE | 2023-07-12 15:38 | ED_ITS ---
HPI - General Adult General Chief complaint: Skin/Abscess/Foreign Body Stated complaint: Medication refill Time Seen by Provider: 07/12/23 15:28 Source: patient Mode of arrival: ambulatory Limitations: no limitations History of Present Illness HPI narrative: 27-year-old male with history of hypothyroidism and eczema presents to ED for being without his thyroid medication levothyroxine the past 2 months. Patient also states exacerbation of dry rash on extremities. Patient's other complaint is dysuria and yellow discharge from penis after having unprotected sex 1 month ago. Patient denies any chest pain, shortness of breath, abdominal pain, eyes bulging, weight gain, hot cold temperatures change sensation. Related Data Previous Rx's Medication Instructions Recorded ketorolac 10 mg tablet 10 mg PO Q6H PRN pain 5 days #20 06/16/22 tabs cyclobenzaprine 10 mg tablet 10 mg PO TID PRN muscle spasm #14 07/21/22 tabs ibuprofen 600 mg tablet 600 mg PO Q8H PRN pain #14 tabs 07/21/22 lidocaine 5 % topical patch 1 patch topical DAILY #15 ea 07/21/22 levothyroxine 200 mcg capsule 200 mcg PO DAILY #30 caps 12/27/22 levothyroxine 200 mcg capsule 200 mcg PO DAILY #30 caps 03/15/23 doxycycline hyclate 100 mg capsule 100 mg PO BID 7 days #14 caps 07/12/23 hydrocortisone 1 % topical cream 1 appl topical BID PRN rash 2 07/12/23 weeks #28.4 grams levothyroxine 200 mcg capsule 200 mcg PO DAILY 30 days #30 caps 07/12/23 Allergies Allergy/AdvReac Type Severity Reaction Status Date / Time SEASONAL ALLERGIES Allergy Unknown SNEEZING, Uncoded 07/12/23 12:03 ITCHY EYES Review of Systems 2 Review of Systems: eczema rash, dyuria, and penile rash Yes all other systems are reviewed and are negative [facility] Social History Social History Alcohol intake: current Alcohol intake frequency: a few times a month Substance Use Type: Marijuana Advance Directives: No Physical Exam ED Vital Signs: Vital Signs - 24 hr 07/12/23 12:04 Temperature 98.8 F Pulse Rate 82 Respiratory Rate 12 Blood Pressure 141/90 H Pulse Oximetry 98 Oxygen Delivery Method Room Air BMI result Body Mass Index 27.4 Const General: cooperative, healthy appearing, comfortable, no acute distress, well developed, alert, awake and Physically active Orientation/consciousness: oriented to person, oriented to place, oriented to time and patient oriented x3 HENMT Other: Negative for facial swelling or eye bulging. Head: Yes normal to inspection, Yes No palpable skull fracture present, Yes normocephalic and Yes atraumatic Neck Neck: Yes normal visual inspection, Yes full ROM, Yes no lymphadenopathy, Yes no meningeal signs, Yes trachea midline, Yes supple, No anterior neck swelling and No tender Chest Chest palpation & inspection: normal inspection of the chest and normal palpation of entire chest wall Resp Effort & Inspection: normal respiratory effort and able to speak in complete sentences Auscultation: clear to auscultation bilaterally Cardio Jugular venous distension: no JVD Heart sounds: S1 normal heart sound present and S2 normal heart sound present GI Inspection: Yes normal to inspection, No abdominal wall ecchymosis and No distended Palpation (GI): Soft to palpation, not firm, nontender, no guarding and not rigid Other: refused exam General: No CVA tenderness and Yes no CVA tenderness Back/Spine/Pelvis Back: no CVA tenderness, No CVA tenderness and No back tenderness Skin Other: eczema like rash Full body images: 2 1. eczema like rash 2. eczema like rash 3. eczema like rash 4. eczema like rash 5. eczema like rash 6. eczema like rash Neuro General: oriented to person, oriented to place, oriented to time, patient oriented x3, gait normal, tone normal, moves all extremities, Normal light touch and pain sensation, no meningeal signs, no focal motor deficits, CN's II-XI intact bilaterally and normal sensation to monofilament Extrem General: Yes normal to inspection and Yes full ROM Psych Appearance: grossly normal, well kempt and not disheveled Medications Administered Discontinued Medications Generic Name Dose Route Start Last Admin Trade Name Freq PRN Reason Stop Dose Admin Ceftriaxone Sodium 500 mg/ 0 mg 07/12/23 16:17 07/12/23 16:56 Lidocaine HCl 1 ml IM 07/12/23 16:18 1 kit ONCE ONE Administration Medical Decision Making Medical Decision Making [facility] Narrative: 27-year-old male presents to the ED medication refill of liver thyroxine, eczema exacerbation rash of extremities, and also dysuria and penile discharge. Labs confirmed hypothyroidism. Patient not swollen in face extremities or abdomen. Patient refused a genitourinary exam. Patient agreeable to empiric treatment for STIs. Patient admits to unprotected sex last month. Differential Diagnosis Differential Diagnoses: The differential diagnosis associated with the presentation includes ( Medication refill, chlamydia, gonorrhea, hypothyroidism) Lab Data [facility] Lab Attestation statement: I reviewed the patient's lab results. 07/12/23 12:45 07/12/23 12:45 Labs: Lab Results 07/12/23 07/12/23 Range/Units 12:45 16:11 WBC 8.3 (4.8-10.8) X10*3/uL RBC 5.24 (4.60-5.80) X10*6/uL Hgb 15.1 (14.0-18.0) g/dl Hct 44.8 (42.0-52.0) % MCV 85.5 (80.0-98.0) fL MCH 28.8 (27.0-33.0) pg MCHC 33.7 (31.0-36.0) g/dl RDW 15.9 (11.0-16.0) % Plt Count 249 (160-400) X10*3/uL MPV 9.8 (9.4-12.4) fL Immature Gran % (Auto) 0.5 H (0.0-0.4) % Neut % (Auto) 52.8 (45-73) % Lymph % (Auto) 38.1 (20-40) % Cowley % (Auto) 4.6 (2-11) % Eos % (Auto) 2.9 (0-4) % Baso % (Auto) 1.1 (0-2) % Lymph # (Auto) 3.2 (1.2-4.9) X10*3/uL Cowley # (Auto) 0.4 (0.1-1.2) X10*3/uL Eos # (Auto) 0.2 (0.0-0.4) X10*3/uL Baso # (Auto) 0.1 (0.0-0.2) X10*3/uL Abs Immat Gran (auto) 0.04 H (0.00-0.03) X10*3/uL Absolute Neuts (auto) 4.4 (2.0-8.3) x10*3/uL Absolute Nucleated RBC 0.000 (0.0-0.012) X10*3/uL Nucleated RBC % (auto) 0.0 (0.0-0.2) /100WBC Sodium 141 (135-145) mmol/L Potassium 3.6 (3.3-5.1) mmol/L Chloride 103 (96-108) mmol/L Carbon Dioxide 26 (22-29) mmol/L Anion Gap 16 (12-20) BUN 15 (9-16) mg/dL Creatinine 1.35 (0.5-1.4) mg/dL Estim Creat Clear Calc 79.5 Estimated GFR > 60 Random Glucose 94 (60-115) mg/dL Calcium 9.8 (8.4-10.2) mg/dL Total Bilirubin 0.6 (0.0-1.0) mg/dL AST 85 H (5-37) U/L ALT 40 (0-40) U/L Alkaline Phosphatase 51 (39-117) U/L Total Protein 8.7 H (6.5-8.0) g/dL Albumin 5.1 H (3.5-5.0) g/dL TSH 33.16 H (0.32-4.0) uIU/mL Free T4 < 0.42 L (0.71-1.85) ng/dL Urine Color Yellow Urine Appearance Clear Urine pH 7.5 (5.0-9.0) Ur Specific [place] 1.015 (1.005-1.025) Urine Protein Negative (Neg-Trace) mg/dL Urine Glucose (UA) Negative (Negative) mg/dL Urine Ketones Negative (Negative) mg/dL Urine Blood Negative (Negative) Urine Nitrite Negative (Negative) Ur Leukocyte Esterase Negative (Negative) External Record Review External record reviewed: Other ( prior visits) Prescription Management I considered prescription management with: Other ( hypothyroidism) Discharge Plan Discharge Clinical Impression: Medication refill, Eczema, Dysuria, Hypothyroidism Patient Disposition: Home, Self-Care Instructions: Hypothyroidism (ED), Dysuria (ED), Dermatitis (ED), Medicine Refill (ED) Additional Instructions: Recommend follow up with Primary care provider and medical coding auditor. Return to the ED immediately for any chest pain, shortness of breath, eye bulging, fever, swelling of extremities and abdomen, nuasea, vomitting, worsening rash, testicular pain, penile lesions, penile discharrge, back pain, chills, or any other concerning symptoms. Prescriptions: New levothyroxine 200 mcg capsule 200 mcg PO DAILY 30 Days Qty: 30 0RF hydrocortisone 1 % cream 1 appl topical BID PRN (Reason: rash) 14 Days Qty: 28.4 0RF doxycycline hyclate 100 mg capsule 100 mg PO BID 7 Days Qty: 14 0RF No Action cyclobenzaprine 10 mg tablet 10 mg PO TID PRN (Reason: muscle spasm) Qty: 14 0RF ibuprofen 600 mg tablet 600 mg PO Q8H PRN (Reason: pain) Qty: 14 0RF lidocaine 5 % adhesive patch,medicated 1 patch topical DAILY Qty: 15 0RF Rx Instructions: leave on most painful area for up to 12 hrs ketorolac 10 mg tablet 10 mg PO Q6H PRN (Reason: pain) 5 Days Qty: 20 0RF Rx Instructions: Patient received Toradol in the emergency room. levothyroxine 200 mcg capsule 200 mcg PO DAILY Qty: 30 0RF levothyroxine 200 mcg capsule 200 mcg PO DAILY Qty: 30 0RF Interventions: ED Discharge Assessment Last Done: 07/12/23 17:02 Discharge Date/Time: 07/12/23 17:02 Print Language: Macedonian
[2023-07-12 16:25] LABS: Appearance Urine Clear; Color Urine Yellow; Glucose Urine UA Negative (Negative); Leukocyte Esterase Urine Negative (Negative); Nitrite Urine Negative (Negative); PH 7.5 (5.0-9.0); Specific Gravity - Urine 1.015 (1.005-1.025); Urine Blood Negative (Negative); Urine Ketones Negative (Negative); Urine Protein Negative (Neg-Trace)
[2023-07-12] MEDS: cefTRIAXone sodium 500 MG, Lidocaine HCl 1 % MPF 1 ML IM (16:56)
[2023-07-13 04:49] LABS: CT PCR NOT DETECTED (Not Detect.); NG PCR DETECTED (Not Detect.)
== END 2023-07-12 17:02 | disposition home or self-care (01) ==
PROVIDERS: Physician Assistant; Physician Assistant Medical; Emergency Provider Internal Medicine
DX: A54.9 Gonococcal infection, unspecified (principal); R30.0 Dysuria; E03.9 Hypothyroidism, unspecified; Z76.0 Encounter for issue of repeat prescription; Z79.899 Other long term (current) drug therapy
CPT/HCPCS: 0353U; 36415; 80053; 81003; 84439; 84443; 85025; 96372; 99282; 99284; J0696

== ENCOUNTER 2023-12-07 10:51 | Emergency (ER) | payer OTHER, SELFPAY ==
[2023-12-07 12:04] VITALS: BP 139/97; PULSE 54; RESP 18; TEMP 35.8; O2SAT 99; BMI 33.1
--- NOTE | 2023-12-07 12:05 | ED.GENADULT ---
HPI - General Adult General Chief complaint: General Medical Stated complaint: Medication refill Time Seen by Provider: 12/07/23 12:08 Source: patient Mode of arrival: ambulatory Limitations: no limitations History of Present Illness ED Provider: Ana Conroy PA-C HPI narrative: Patient is a 28 year old assigned male at with a history of hypothyroidism presenting to the emergency department today requesting a medication refill. Patient states that over the last few months he has had multiple PCP appointments rescheduled and because of that, he has been out of his levothryoxine medication. Patient states that he would like a refill of his medication. Patient denies any dizziness, lightheadedness, abdominal pain, nausea, vomiting, fever, chills, blurry vision, double vision, loss of vision, chest pain, difficulty breathing, shortness of breath, back pain, night sweats, pain with urination, increased urinary frequency, increased urinary urgency, blood in his urine or stool, syncope or a near syncopal episode, recent trauma or falls, bowel incontinence, bladder incontinence, or any other complaints at this time. Relieving factors: none Exacerbating factors: none Associated symptoms: denies other symptoms Treatments prior to arrival: none Related Data Previous Rx's ?Medication ?Instructions ?Recorded ketorolac 10 mg tablet 10 mg PO Q6H PRN pain 5 days #20 06/16/22 tabs cyclobenzaprine 10 mg tablet 10 mg PO TID PRN muscle spasm #14 07/21/22 tabs ibuprofen 600 mg tablet 600 mg PO Q8H PRN pain #14 tabs 07/21/22 lidocaine 5 % topical patch 1 patch topical DAILY #15 ea 07/21/22 levothyroxine 200 mcg capsule 200 mcg PO DAILY #30 caps 12/27/22 levothyroxine 200 mcg capsule 200 mcg PO DAILY #30 caps 03/15/23 doxycycline hyclate 100 mg capsule 100 mg PO BID 7 days #14 caps 07/12/23 hydrocortisone 1 % topical cream 1 appl topical BID PRN rash 2 07/12/23 weeks #28.4 grams levothyroxine 200 mcg capsule 200 mcg PO DAILY 30 days #30 caps 07/12/23 levothyroxine 200 mcg capsule 200 mcg PO DAILY #30 caps 12/07/23 Allergies Allergy/AdvReac Type Severity Reaction Status Date / Time SEASONAL ALLERGIES Allergy Unknown SNEEZING, Uncoded 12/07/23 12:08 ITCHY EYES Review of Systems Constitutional: Constitutional: Reports no additional constitutional complaints, Denies chills, Denies fever(s) and Denies night sweats Eyes: Eyes: Reports no additional eye complaints, Denies blurry vision, Denies change in vision, Denies diplopia, Denies eye discharge, Denies loss of vision and Denies eye pain ENT: Denies dizziness Cardiovascular: Cardiovascular: Reports no additional cardiovascular complaints, Denies chest pain, Denies lightheadedness, Denies Loss of Consciousness and Denies dyspnea Respiratory: Respiratory: Reports no additional respiratory complaints and Denies dyspnea Gastrointestinal: Gastrointestinal: Reports no additional gastrointestinal complaints, Denies abdominal pain, Denies melena, Denies hematochezia, Denies change in bowel habits and Denies change in stool character Genitourinary: Genitourinary: Reports no additional male genitourinary complaints, Denies hematuria, Denies oliguria, Denies difficulty urinating, Denies dysuria, Denies urinary frequency, Denies urinary hesitancy, Denies urinary incontinence and Denies urinary urgency Musculoskeletal: Musculoskeletal: Reports no additional musculoskeletal complaints, Denies numbness and Denies tingling Neurologic: Denies dizziness, Denies loss of vision, Denies numbness and Denies tingling Psychiatric: Psychiatric: Reports no additional psychiatric complaints Endocrine: Endocrine: Reports no additional endocrine complaints Hematologic/Lymphatic: Hematologic/Lymphatic: Reports no additional hematologic/lymphatic complaints Allergic/Immunologic: Allergic/Immunologic: Reports no additional allergic/immunologic complaints PMFSH Past Medical History Attestation statement: The following information was validated with the patient. Source: old records reviewed and nursing notes reviewed Social History Social History Alcohol intake: current Alcohol intake frequency: a few times a month Substance Use Type: Marijuana Advance Directives: No Advance Directives Information Provided: No Do you have a plan to hurt others: No Plan Physical Exam ED Vital Signs: Vital Signs - 24 hr 12/07/23 12:04 12/07/23 12:10 Temperature 96.4 F L 96.4 F L Pulse Rate 54 54 Respiratory Rate 18 18 Blood Pressure 139/97 H 139/97 H Pulse Oximetry 99 99 Oxygen Delivery Method Room Air Room Air BMI result Body Mass Index 33.1 Const General: cooperative, no acute distress, alert and awake Nutritional Appearance: well nourished Orientation/consciousness: patient oriented x3 Limitations: no limitations HENMT Head: Yes normal to inspection and Yes atraumatic Ears: hearing grossly normal bilaterally and external ears normal General nose exam: Normal external nose present, no nasal discharge noted and no epistaxis Face and sinus: Yes normal facial exam, No abrasion and No laceration Mouth: Normal oral and palatal mucosa present, no drooling and no muffled voice Eyes General: appearance normal, both eyes and all related structures Periorbital: periorbital findings normal Eyelids: Yes eyelids normal Conjunctivae: conjunctivae normal Pupils: Equal, round and reactive pupils present EOM: EOMs intact bilaterally Neck Neck: Yes normal visual inspection, Yes full ROM and Yes no lymphadenopathy Chest Chest palpation & inspection: normal inspection of the chest Resp Effort & Inspection: normal respiratory effort and able to speak in complete sentences GI Inspection: Yes normal to inspection Neuro General: patient oriented x3 and moves all extremities Cranial nerves: Yes Equal, round and reactive pupils present Cognition (Neuro): normal cognition Motor exam (neuro): 5/5 motor strength present throughout Sensory Exam: Normal double simultaneous stimulation for sensation Coordination: [id number] test normal Extrem General: Yes normal to inspection, Yes full ROM and Yes capillary refill normal Psych Appearance: grossly normal Mental Status: mental status grossly normal Affect: normal affect Attitude: cooperative Thought process: Normal thought process present Thought content: Normal thought content present Insight: Good insight present (Psych) Medical Decision Making Medical Decision Making MDM Narrative: Patient is a 28 year old assigned male at with a history of hypothyroidism presenting to the emergency department today for a medication refill. Patient's physical exam was unremarkable. I explained my physical exam findings to the patient. I answered all questions asked by the patient. I stressed the importance of the patient taking his medication as prescribed. I stressed the importance of the patient following up with his primary care provider. I stressed the importance of the patient returning to the emergency department immediately if his symptoms were to worsen or if he were to develop any dizziness, shortness of breath, difficulty breathing, chest pain, blurry vision, loss of vision, nausea, vomiting, abdominal pain, fever, chills, back pain, or any other complaints. Patient verbalized agreement and understanding with this treatment plan and discharge. Differential Diagnosis Differential Diagnoses: The differential diagnosis associated with the presentation includes Hypothyroidism Medication refill Admission/Observation Consideration of admission/observation: Escalation of care including admission/observation considered Patient would have been admitted to the hospital had his clinical presentation warranted hospital admission. Discharge Plan Discharge Clinical Impression: Medication refill, Hypothyroidism Patient Disposition: Home, Self-Care Instructions: Hypothyroidism (ED), Medicine Refill (ED) Additional Instructions: Follow up with your primary care provider. Return to the emergency department immediately if your symptoms worsen or if you develop any dizziness, shortness of breath, difficulty breathing, chest pain, blurry vision, loss of vision, nausea, vomiting, abdominal pain, fever, chills, back pain, or any other complaints. Prescriptions: New levothyroxine 200 mcg capsule 200 mcg PO DAILY Qty: 30 3RF No Action cyclobenzaprine 10 mg tablet 10 mg PO TID PRN (Reason: muscle spasm) Qty: 14 0RF ibuprofen 600 mg tablet 600 mg PO Q8H PRN (Reason: pain) Qty: 14 0RF lidocaine 5 % adhesive patch,medicated 1 patch topical DAILY Qty: 15 0RF Rx Instructions: leave on most painful area for up to 12 hrs ketorolac 10 mg tablet 10 mg PO Q6H PRN (Reason: pain) 5 Days Qty: 20 0RF Rx Instructions: Patient received Toradol in the emergency room. levothyroxine 200 mcg capsule 200 mcg PO DAILY 30 Days Qty: 30 0RF hydrocortisone 1 % cream 1 appl topical BID PRN (Reason: rash) 14 Days Qty: 28.4 0RF doxycycline hyclate 100 mg capsule 100 mg PO BID 7 Days Qty: 14 0RF levothyroxine 200 mcg capsule 200 mcg PO DAILY Qty: 30 0RF levothyroxine 200 mcg capsule 200 mcg PO DAILY Qty: 30 0RF Referrals: [facility] [place] Family Medicine [Provider Group] (Call to establish and follow up with a primary care provider. If you already have a primary care provider, please follow up with them.) [facility] [place] Subhash Crocker [Provider Group] [facility] [place] Primary Rossy Lin [Provider Group] Interventions: ED Discharge Assessment Last Done: 12/07/23 12:10 Discharge Date/Time: 12/07/23 12:11 Print Language: Stateless
[2023-12-07 12:10] VITALS: BP 139/97; PULSE 54; RESP 18; TEMP 35.8; O2SAT 99
== END 2023-12-07 12:11 | disposition home or self-care (01) ==
PROVIDERS: Emergency Provider Emergency Medicine
DX: Z76.0 Encounter for issue of repeat prescription (principal); E03.9 Hypothyroidism, unspecified
CPT/HCPCS: 99282; 99283

== ENCOUNTER 2024-04-04 11:03 | Emergency (ER) | payer MEDICAID, SELFPAY ==
[2024-04-04 11:53] VITALS: BP 131/70; PULSE 64; RESP 19; TEMP 37; O2SAT 98; BMI 28.3
--- NOTE | 2024-04-04 11:55 | ED.GENADULT ---
HPI - General Adult General Chief complaint: General Medical Stated complaint: med refill Time Seen by Provider: 04/04/24 11:53 Source: patient, RN notes reviewed and old records reviewed Mode of arrival: ambulatory Limitations: no limitations History of Present Illness ED Provider: Sheba Fontana PA-C HPI narrative: 28 yo male with history of hypothyroidism presents to the ER for medication refill. He states he ran out of his levothyroxine medication about 1 month ago. he has no PCP. he reports some body stiffness but otherwise denies any other symptoms including lethargy, confusion, SOB, peripheral edema, or weakness. MD complaint: med refill Relieving factors: none Exacerbating factors: none Associated symptoms: denies other symptoms Treatments prior to arrival: none Related Data Previous Rx's ?Medication ?Instructions ?Recorded levothyroxine 200 mcg capsule 200 mcg PO DAILY #90 caps 04/04/24 (Tirosint) Allergies Allergy/AdvReac Type Severity Reaction Status Date / Time No Known Allergies Allergy Verified 04/04/24 11:56 Review of Systems Review of Systems: Yes all other systems are reviewed and are negative PMFSH Social History Social History Advance Directives: No Advance Directives Information Provided: Yes Do you have a plan to hurt others: No Plan Physical Exam ED Vital Signs: Vital Signs - 24 hr 04/04/24 11:53 04/04/24 12:03 Temperature 98.6 F 98.6 F Pulse Rate 64 64 Respiratory Rate 19 19 Blood Pressure 131/70 131/70 Pulse Oximetry 98 98 Oxygen Delivery Method Room Air Room Air BMI result Body Mass Index 28.3 Appearance: Alert. Oriented X3. No acute distress. HEENT: normal inspection CVS: Normal heart rate and rhythm. Pulses normal. Respiratory: No respiratory distress. lungs CTAB Skin: Skin warm and dry. Normal skin color. Normal skin turgor. No rashes. Extremities: no peripheral edema, no joint swelling Neuro: Oriented X 3. grossly normal, nonfocal, steady gait Medical Decision Making Medical Decision Making MDM Narrative: 28 yo male presenting for levothyroxine refill after not taking it for 1 month. VS are stable. his exam is unremarkable. no clinical evidence of symptoms of severe hypothyroidism or myxedema coma. spoke with [facility] pharmacy and confirmed he picked up a 90 day supply of the medication in november. will send refill and patient was encouraged to make an appointment for pcp. stable for d/c home Differential Diagnosis Differential Diagnoses: The differential diagnosis associated with the presentation includes hypothyroidism, severe hypothyroidism, myxedema coma External Record Review External record reviewed: Outpatient record Prescription Management I considered prescription management with: Other (levothyroxine) Chronic Conditions Patient?s care impacted by: Other (hypothyroidism) Social Determinants Patient?s care significantly limited by Social Determinants of Health including: Problems related to primary support group and Other Social Determinant of Health (no PCP) Critical Care Time Critical Care Time Critical Care Time: No Discharge Plan Discharge Clinical Impression: Hypothyroidism Qualifiers: Hypothyroidism type: unspecified Qualified Code(s): E03.9 - Hypothyroidism, unspecified Patient Disposition: Home, Self-Care Instructions: Hypothyroidism (ED) Additional Instructions: take your thyroid medication every morning on an empty stomach it is important that you follow up with a primary care doctor for ongoing prescribing of your medication untreated thyroid disease can be life threatening If you develop new or worsening symptoms call 911 or come back to the ER for further evaluation. Prescriptions: New levothyroxine [Tirosint] 200 mcg capsule 200 mcg PO DAILY Qty: 90 1RF Interventions: ED Discharge Assessment Last Done: 04/04/24 12:03 Discharge Date/Time: 04/04/24 12:03 Print Language: Telugu
[2024-04-04 12:03] VITALS: BP 131/70; PULSE 64; RESP 19; TEMP 37; O2SAT 98
== END 2024-04-04 12:03 | disposition home or self-care (01) ==
PROVIDERS: Emergency Provider Emergency Medicine
DX: E03.9 Hypothyroidism, unspecified (principal); Z76.0 Encounter for issue of repeat prescription
CPT/HCPCS: 99282

== ENCOUNTER 2024-06-21 11:03 | Outpatient (AMB) | payer OTHER, SELFPAY ==
--- NOTE | 2024-06-21 11:10 | MHC.PC.OV ---
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 Sales Development Executive Required: No Allergies SEASONAL ALLERGIES Allergy (Unknown, Uncoded 06/21/24 11:43) SNEEZING, ITCHY EYES Medication List - Last Reconciled 06/21/24 by Dylan Mejia CNP levothyroxine 200 mcg PO DAILY Tobacco use date assessed: 06/21/24 Dental Screening Dental Screen Date: 06/21/24 Did you have a dental visit in the last 12 months?: No Did you have a dental problem in the last 6 months where you did not have access to dental care?: No Was dental information given to patient?: Yes HPI HPI Comments History of Present Illness Details 28-year-old male presents to establish care. Prior PCP? - [facility] Last office visit/CPE - over 10 years ago Last CPE - while incarcerated about 2 years ago Last labs - about a year ago Acute issue(s) - None Past Medical History - Hypothyroidism, acid reflux, psoriasis Medications - Levothyroxine 200 mcg daily Surgical History - Thyroid surgery Family History - None Social History - Nonsmoker. Does not vape. Drinks less than a pint of alcoholic beverage occasionally/socially on weekends. Smokes 3 grams of cannabis every 2 days - Has been making healthy dietary choices. Exercises routinely (push-ups, and gym). Generally sleep well - he is sexually active, in a polygamous relationship, uses protection for sexual intercourse, has no STD concerns Health maintenance - Last eye exam was several years ago. Referred to ophthalmology for routine eye care - Last dental visit was over 3 years ago; encouraged to schedule an appointment with his dentist for routine dental care - Last recorded tetanus vaccine was in 2006. He will consider getting the vaccine at his next PCP's visit - Has not been vaccinated for the flu this season; declines vaccination [facility] Medical History (Updated 06/21/24 @ 12:07 by Dylan Mejia CNP) Psoriasis Acid reflux H/O thyroid disease Surgical History (Updated 06/21/24 @ 11:24 by Jenny Frank) History of thyroid surgery Family History (Updated 06/21/24 @ 11:27 by Jenny Frank) Maternal Uncle Substance abuse Father No problems noted. Sister Asthma High blood pressure Social History (System 04/04/24 @ 13:23 by Yarely Griffiths) Housing: House Alcohol intake: current Alcohol intake frequency: a few times a month Patient Tobacco Use Status: Never used Tobacco e-Cigarette/Vaping Use: Never Used Second Hand Smoke Exposure: Yes Substance Use Type: Marijuana service: No Current occupational status: employed Current occupation: [employer] Current occupational exposures/hazards: No Cognitive needs: No Hearing needs: No Vision needs: No Questionnaire PHQ-9 Over the last 2 weeks, how often have you been bothered by any of the following problems? 1. Little interest or pleasure in doing things: several days 2. Feeling down, depressed, or hopeless: several days 3. Trouble falling or staying asleep, or sleeping too much: several days 4. Feeling tired or having little energy: not at all 5. Poor appetite or overeating: not at all 6. Feeling bad about yourself - or that you are a failure or have let yourself or your family down: not at all 7. Trouble concentrating on things, such as reading the newspaper or watching television: not at all 8. Moving or speaking so slowly that other people could have noticed. Or the opposite - being so fidgety or restless that you have been moving around a lot more than usual: not at all 9. Thoughts that you would be better off or of hurting yourself in some way: not at all Total score: 3 Depression Screening Interpretation: Negative Depression Screening Done: Yes 63390 - PHQ-9 Billing: Yes Source: Developed by Drs. Dom Do, Sailaja Veras, Dhruv Bingham and colleagues, with an educational gideon from [employer]. Thrive Questionnaire Date Thrive assessed: 06/21/24 I am a: Patient What is your living situation today?: I have a steady place to live Within the past 12 months, did the food you bought not last and you didn't have the money to get more?: Often true Within the past 12 months, did you worry whether your food would run out before you got money to buy more?: Often true Do you have trouble paying for medicines?: No Do you have trouble getting transportation to medical appointments?: No Do you have trouble paying your heating and electricity bill?: No Do you have trouble taking care of your child, family member or friend?: No Do you have trouble with day-to-day activities such as bathing, preparing meals, shopping, managing finances, etc.?: No Are you currently unemployed and looking for a job?: No Are you interested in more education?: No Please select the resources that you would like help with: None Currently or been in a relationship where the following occur: I choose not to answer THRIVE Score: 2 AUDIT C Alcohol Use Questionnaire (AUDIT-C) 1. How often do you have a drink containing alcohol?: Never Total Score: 0 Score Reviewed/Action Taken: Yes CELESTINO-7 AMB Questionnaire CELESTINO-7 Date CELESTINO - 7 assessed: 06/21/24 Feeling nervous, anxious, or on edge: 0 = Not at all Not being able to stop or control worryin = Not at all Worrying too much about different things: 0 = Not at all Trouble relaxin = Not at all Being so restless that it is hard to sit still: 0 = Not at all Becoming easily annoyed or irritable: 0 = Not at all Feeling afraid as if something awful might happen: 0 = Not at all Total CELESTINO-7 score (0-4 normal; 5-9 mild; 10-14 moderate; 15-21 severe): 0 Source: Developed by Drs. Dom Do, Sailaja Veras, Dhruv Bingham and colleagues, with an educational gideon from [employer]. CELESTINO-7 Assessment Billing CELESTINO-7 Assessment Tool: CELESTINO-7 Assessment 15942 Physical exam (Primary Care) Vital Signs: Last Vital Signs Temp 98.4 F 06/21/24 11:20 Pulse 75 06/21/24 11:20 Resp 16 06/21/24 11:20 BP 128/80 06/21/24 11:47 Pulse Ox 97 06/21/24 11:20 Oxygen Delivery Method Room Air 06/21/24 11:20 BMI result Body Mass Index 30.0 Tobacco/Smoking Status: Tobacco use Status Tobacco use date assessed 06/21/24 06/21/24 11:18 Patient Tobacco Use Status Never used Tobacco 06/21/24 11:18 e-Cigarette/Vaping Use Never Used 06/21/24 11:18 PHQ-9: PHQ-9 Score PHQ-9: Total score 3 06/21/24 11:49 Depression Screening Interpretation: Negative Thrive Assessment: Date of Thrive Assessment Date Thrive assessed 06/21/24 06/21/24 11:13 Currently or been in a relationship where the following occur: I choose not to answer Coding Level of Care Code New Pt Prev Care 18-39yr([id number] Diagnoses Normal physical examination, routine Z00.00 Eye exam, routine Z01.00 Hypothyroidism E03.9 Laboratory tests ordered as part of a complete physical exam (CPE) Z00.00 Additional Codes CELESTINO-7 Assessment Billing - CELESTINO-7 Assessment Tool: CELESTINO-7 Assessment 79414 ([id number]) PHQ-9 - 16841 - PHQ-9 Billing: Yes ([id number]) Assessment & Plan Assessment & Plan (1) Normal physical examination, routine: Code(s): Z00.00 - Encounter for general adult medical examination without abnormal findings Category: Medical Plan: No significant functional limitation on it. Healthy diet and routine exercise encouraged. Advised to perform lab work 2-3 days before next visit follow-up for telehealth in 2 weeks. Verbalized understanding and agreed with the plan. (2) Eye exam, routine: Code(s): Z01.00 - Encounter for examination of eyes and vision without abnormal findings Category: Medical Plan: Last eye exam was several years ago. Referred to ophthalmology for routine eye care. (3) Hypothyroidism: Code(s): E03.9 - Hypothyroidism, unspecified Category: Medical Plan: Continue current treatment regimen. Will check TSH/T4 level and make changes as needed. Verbalized understanding and agreed with the plan. (4) Laboratory tests ordered as part of a complete physical exam (CPE): Code(s): Z00.00 - Encounter for general adult medical examination without abnormal findings Category: Medical Plan: Fasting labs ordered as part of a complete physical exam. Advised to fast for at least 10 hours before getting labs drawn. May drink water Verbalized understanding and agreed with treatment plan. Orders: Orders UA CC w/rflx Micro + Cult Today Z00.00 - Encounter for general adult medical examination without abnormal findings Complete Blood Count Auto Diff Today Z00.00 - Encounter for general adult medical examination without abnormal findings Comprehensive [place]. Panel Fast Today Z00.00 - Encounter for general adult medical examination without abnormal findings Lipid Panel Today Z00.00 - Encounter for general adult medical examination without abnormal findings TSH reflex Free T4 Today Z00.00 - Encounter for general adult medical examination without abnormal findings Referrals Ophthalmology Referral Z01.00 - Encounter for examination of eyes and vision without abnormal findings Medications: Discontinued cyclobenzaprine Discontinued Reason: Patient no longer taking 10 mg PO TID PRN 14 tabs 0RF muscle spasm lidocaine 5% leave on most painful area for up to 12 hrs Discontinued Reason: Patient no longer taking 1 patch topical DAILY 15 ea 0RF ketorolac Patient received Toradol in the emergency room. Discontinued Reason: Patient no longer taking 10 mg PO Q6H 5 days PRN 20 tabs 0RF pain ibuprofen Discontinued Reason: Patient no longer taking 600 mg PO Q8H PRN 14 tabs 0RF pain levothyroxine Discontinued Reason: Duplicate 200 mcg PO DAILY 30 caps 0RF hydrocortisone 1% Discontinued Reason: Patient no longer taking 1 appl topical BID 2 weeks PRN 28.4 grams 0RF rash levothyroxine Discontinued Reason: Duplicate 200 mcg PO DAILY 30 caps 0RF doxycycline hyclate Discontinued Reason: Patient no longer taking 100 mg PO BID 7 days 14 caps 0RF levothyroxine Discontinued Reason: Duplicate 200 mcg PO DAILY 30 days 30 caps 0RF levothyroxine Discontinued Reason: Duplicate 200 mcg PO DAILY 30 caps 3RF levothyroxine (Tirosint) Discontinued Reason: Duplicate 200 mcg PO DAILY 90 caps 1RF
[2024-06-21 11:20] VITALS: BP 140/75; PULSE 75; RESP 16; TEMP 36.9; O2SAT 97
[2024-06-21 11:47] VITALS: BP 128/80
== END 2024-06-21 12:02 | disposition home or self-care (01) ==
PROVIDERS: PCP Nurse Practitioner Family; Visit Provider Nurse Practitioner Family
DX: Z00.00 Encounter for general adult medical examination without abnormal findings (principal); E03.9 Hypothyroidism, unspecified

== ENCOUNTER → 2024-06-21 11:03 | Outpatient (BNVA) | payer OTHER, SELFPAY | PROVIDERS: PCP Nurse Practitioner Family; Visit Provider Nurse Practitioner Family | DX: Z00.00 Encounter for general adult medical examination without abnormal findings (principal); E03.9 Hypothyroidism, unspecified; Z79.899 Other long term (current) drug therapy | CPT/HCPCS: 96127; 99385 ==

== ENCOUNTER 2024-11-09 10:10 | Outpatient (REF) | payer OTHER, SELFPAY ==
[2024-11-09 10:27] LABS: MANUAL DIFF FLAG NO
[2024-11-09 11:01] LABS: Appearance Urine Cloudy; Color Urine Yellow; Glucose Urine UA Negative (Negative); Leukocyte Esterase Urine Large (3+) (Negative); Nitrite Urine Negative (Negative); UMIC TRIGGER UACC YES; Urine Blood Negative (Negative); Urine Ketones Negative (Negative); Urine Protein Negative (Neg-Trace)
[2024-11-09 11:16] LABS: Basophils Absolute Auto 0.1 X10*3/uL (0.0-0.2); Basophils Percent Auto 1.3 % (0-2); Eosinophils Absolute Auto 0.4 X10*3/uL (0.0-0.4); Eosinophils Percent Auto 4.6 % (0-4); Hematocrit 42.2 % (42.0-52.0); Hemoglobin 14.4 g/dl (14.0-18.0); Imm Gran Abs Auto 0.03 X10*3/uL (0.00-0.03); Imm Gran Pct Auto 0.4 % (0.0-0.4); Lymphocytes Absolute Auto 3.6 X10*3/uL (1.2-4.9); Lymphocytes Percent Auto 45.2 % (20-40); Mean Corpuscular HGB Conc 34.1 g/dl (31.0-36.0); Mean Corpuscular Hemoglobin 29.2 pg (27.0-33.0); Mean Corpuscular Volume 85.6 fL (80.0-98.0); Monocytes Absolute Auto 0.4 X10*3/uL (0.1-1.2); Monocytes Percent Auto 4.6 % (2-11); Neutrophils Absolute Auto 3.5 x10*3/uL (2.0-8.3); Neutrophils Percent Auto 43.9 % (45-73); Platelet Count 296 X10*3/uL (160-400); Red Blood Count 4.93 X10*6/uL (4.60-5.80); Red Cell Distribution Width 14.7 % (11.0-16.0); White Blood Count 7.9 X10*3/uL (4.8-10.8)
[2024-11-09 11:25] LABS: Bacteria Urine None Seen (None Seen); Hyaline Casts Urine 0-2 /LPF (0-2); RBC Urine 0-2 /HPF (0-2); UACC Culture Trigger YES; WBC Urine >50 /HPF (0-5)
[2024-11-09 11:58] LABS: Alanine Aminotransferase 42 U/L (0-40); Albumin Level 4.9 g/dL (3.5-5.0); Alkaline Phosphatase 56 U/L (39-117); Anion Gap 15 (12-20); Aspartate Amino Transferase 95 U/L (5-37); Bilirubin Total 0.5 mg/dL (0.0-1.0); Blood Urea Nitrogen 20 mg/dL (9-16); Calcium 9.3 mg/dL (8.4-10.2); Carbon Dioxide 24 mmol/L (22-29); Chloride 106 mmol/L (96-108); Cholesterol 292 mg/dL (<200); Estimated Glomerular Filt Rate > 60; Glucose Fasting 94 mg/dL (60-99); HDL Cholesterol 68 mg/dL (>40); LDL Cholesterol Calculated 206 mg/dL (<100); Potassium 3.8 mmol/L (3.3-5.1); Sodium 141 mmol/L (135-145); Total Protein 8.2 g/dL (6.5-8.0); Triglycerides 94 mg/dL (<150)
[2024-11-09 12:01] LABS: TSH reflex Free T4 36.06 uIU/mL (0.32-4.0)
[2024-11-09 12:41] LABS: Free T4 (Free Thyroxine) < 0.42 ng/dL (0.71-1.85)
== END 2024-11-09 10:11 | disposition home or self-care (01) ==
LOC: HO.LAB 10:10
PROVIDERS: PCP Nurse Practitioner Family; Visit Provider Nurse Practitioner Family
DX: Z00.00 Encounter for general adult medical examination without abnormal findings (principal)
CPT/HCPCS: 36415; 80053; 80061; 81001; 81003; 84439; 84443; 85025; 87086

== ENCOUNTER 2025-04-10 11:13 | Outpatient (REF) | payer SELFPAY ==
[2025-04-10 13:10] LABS: Free T4 (Free Thyroxine) < 0.42 ng/dL (0.71-1.85)
== END 2025-04-10 11:14 | disposition home or self-care (01) ==
LOC: HO.LAB 11:13
PROVIDERS: PCP Nurse Practitioner Family; Visit Provider Nurse Practitioner Family
DX: E03.9 Hypothyroidism, unspecified (principal)
CPT/HCPCS: 36415; 84439; 84443

== ENCOUNTER 2025-04-24 12:45 | Outpatient (AMB) | payer OTHER, SELFPAY ==
--- NOTE | 2025-04-24 12:48 | MHC.PC.OV ---
Vital Signs 04/24/25 12:50 Height 5 ft 8 in Weight 197 lb 4 oz BMI 30.0 BP 121/64 Blood Pressure Location Lt brachial Position Sitting Respiration 16 Pulse 85 Pulse Source Pulse Oximeter Temp 98.5 F Temp Source Oral Pulse Oximetry (%) 98 Oxygen Delivery Method Room Air Intake Visit Reasons: thyroid Intake Note: patient here for follow up on Thyroid and c/o rash on body and hands Service Vehicle Operator Required: No Allergies SEASONAL ALLERGIES Allergy (Unknown, Uncoded 04/24/25 13:06) SNEEZING, ITCHY EYES Medication List - Last Reconciled 04/24/25 by Dylan Mejia CNP levothyroxine 200 mcg PO DAILY 30 days Tobacco use date assessed: 04/24/25 Dental Screening Dental Screen Date: 04/24/25 Did you have a dental visit in the last 12 months?: No Did you have a dental problem in the last 6 months where you did not have access to dental care?: No Was dental information given to patient?: Yes HPI HPI Comments History of Present Illness Details 29-year-old male presents for hypothyroidism follow-up. He is on levothyroxine 200 mcg daily which was last refilled in October for 30 days. He reports fatigue and dry itchy skin to his arms and behind his knees since he stopped taking levothyroxine. He has been using lotion without improvement. His last follow-up visit was in 06/09/2024. [facility] Medical History (Updated 04/24/25 @ 13:22 by Dylan Mejia CNP) Psoriasis Acid reflux H/O thyroid disease Surgical History (Updated 06/21/24 @ 11:24 by DEEDEE Kay) History of thyroid surgery Family History (Updated 06/21/24 @ 11:27 by DEEDEE Kay) Maternal Uncle Substance abuse Father No problems noted. Sister Asthma High blood pressure Social History (System 04/04/24 @ 13:23 by Yarely Griffiths) Housing: House Alcohol intake: current Alcohol intake frequency: a few times a month Patient Tobacco Use Status: Never used Tobacco e-Cigarette/Vaping Use: Never Used Second Hand Smoke Exposure: Yes Substance Use Type: Marijuana service: No Current occupational status: employed Current occupation: [employer] Current occupational exposures/hazards: No Cognitive needs: No Hearing needs: No Vision needs: No Questionnaire PHQ-9 Over the last 2 weeks, how often have you been bothered by any of the following problems? 1. Little interest or pleasure in doing things: several days 2. Feeling down, depressed, or hopeless: not at all 3. Trouble falling or staying asleep, or sleeping too much: not at all 4. Feeling tired or having little energy: not at all 5. Poor appetite or overeating: not at all 6. Feeling bad about yourself - or that you are a failure or have let yourself or your family down: not at all 7. Trouble concentrating on things, such as reading the newspaper or watching television: not at all 8. Moving or speaking so slowly that other people could have noticed. Or the opposite - being so fidgety or restless that you have been moving around a lot more than usual: not at all 9. Thoughts that you would be better off or of hurting yourself in some way: not at all Total score: 1 Source: Developed by Drs. Dom Do, Sailaja Veras, Dhruv Bingham and colleagues, with an educational gideon from [employer]. Thrive Questionnaire Date Thrive assessed: 04/21/25 I am a: Patient What is your living situation today?: I choose not to answer this question Within the past 12 months, did the food you bought not last and you didn't have the money to get more?: Sometimes True Within the past 12 months, did you worry whether your food would run out before you got money to buy more?: Sometimes True Do you have trouble paying for medicines?: I choose not to answer this question Do you have trouble getting transportation to medical appointments?: No Do you have trouble paying your heating and electricity bill?: I choose not to answer this question Do you have trouble taking care of your child, family member or friend?: No Do you have trouble with day-to-day activities such as bathing, preparing meals, shopping, managing finances, etc.?: No Are you currently unemployed and looking for a job?: Yes Are you interested in more education?: No Please select the resources that you would like help with: None Currently or been in a relationship where the following occur: No concerns reported THRIVE Score: 2 AUDIT C Alcohol Use Questionnaire (AUDIT-C) 1. How often do you have a drink containing alcohol?: Never 2. How many drinks containing alcohol do you have on a typical day when you are drinking?: 1 or 2 3. How often do you have six or more drinks on one occasion?: Never Total Score: 0 CELESTINO-7 AMB Questionnaire CELESTINO-7 Date CELESTINO - 7 assessed: 06/21/24 Feeling nervous, anxious, or on edge: 0 = Not at all Not being able to stop or control worryin = Not at all Worrying too much about different things: 0 = Not at all Trouble relaxin = Not at all Being so restless that it is hard to sit still: 0 = Not at all Becoming easily annoyed or irritable: 0 = Not at all Feeling afraid as if something awful might happen: 0 = Not at all Total CELESTINO-7 score (0-4 normal; 5-9 mild; 10-14 moderate; 15-21 severe): 0 Source: Developed by Drs. Dom Do, Sailaja Veras, Dhruv Bingham and colleagues, with an educational gideon from [employer]. Review of Systems Const Details: Const Denies chills, Reports fatigue, Denies fever(s), Denies headache(s) and Denies weakness ENT Denies dizziness and Denies headache(s) Card Denies chest pain, Denies lightheadedness, Denies dyspnea and Denies other (Palpitations) Resp Denies cough, Denies dyspnea, Denies wheezing and Denies other ( shortness of breath) GI Denies abdominal pain, Denies melena, Denies hematochezia, Denies change in bowel habits, Denies dyspepsia and Denies nausea Denies hematuria and Denies dysuria Musc Denies abnormal gait, Denies myalgias, Denies arthralgias, Denies numbness and Denies tingling Skin/Breast Reports as per HPI Neuro Denies abnormal gait, Denies dizziness, Denies headache(s), Denies memory loss, Denies numbness, Denies Sensory deficit (Neuro), Denies tingling and Denies weakness Psych Denies anxiety, Denies depression, Denies memory loss Endo Denies cold intolerance, Reports fatigue, Denies heat intolerance, Denies polydipsia and Denies polyuria Aller/Immun Denies wheezing Physical exam (Primary Care) Vital Signs: Last Vital Signs Temp 98.5 F 04/24/25 12:50 Pulse 85 04/24/25 12:50 Resp 16 04/24/25 12:50 BP 121/64 04/24/25 12:50 Pulse Ox 98 04/24/25 12:50 Oxygen Delivery Method Room Air 04/24/25 12:50 BMI result Body Mass Index 30.0 Tobacco/Smoking Status: Tobacco use Status Tobacco use date assessed 04/24/25 04/24/25 12:55 Patient Tobacco Use Status Never used Tobacco 04/24/25 12:55 e-Cigarette/Vaping Use Never Used 04/24/25 12:55 PHQ-9: PHQ-9 Score PHQ-9: Total score 1 04/24/25 12:55 Thrive Assessment: Date of Thrive Assessment Date Thrive assessed 04/21/25 04/24/25 12:55 Currently or been in a relationship where the following occur: No concerns reported Const Other: General: no acute distress and well developed Nutritional Appearance: well nourished Orientation/consciousness: patient oriented x3 HENMT Head: Yes normocephalic and Yes atraumatic Eyes General: appearance normal, both eyes and all related structures Pupils: Equal, round and reactive pupils present EOM: EOMs intact bilaterally Resp Effort & Inspection: normal respiratory effort Auscultation: clear to auscultation bilaterally Cardio Rate: regular rate Rhythm: regular rhythm Heart sounds: S1 normal heart sound present, S2 normal heart sound present, no gallops, no murmurs and no rubs GI Palpation (GI): No Abdominal aortic bruit present, Soft to palpation, nontender, No hepatosplenomegaly present and No Rebound tenderness present Auscultation: normal bowel sounds General: Yes no CVA tenderness Back/Spine/Pelvis Back: no CVA tenderness Cervical Spine: cervical ROM normal and No Cervical spine tenderness Thoracic/Lumbar Spine: thoraco-lumbar ROM normal, No pain with thoraco-lumbar ROM, No thoracic spinal tenderness and No lumbar spinal tenderness Extrem General: Yes normal to inspection, No edema and No calf tenderness Skin General: warm and dry. Normal skin color. Normal skin turgor Lesions: no lesions Rashes: Very the skin with some peeling/shredding noted to his arms Trauma: no lacerations or abrasions Wounds: no wounds Nails: normal Neuro General: patient oriented x3, gait normal and no focal neuro deficit Cranial nerves: Yes Equal, round and reactive pupils present Cognition (Neuro): normal cognition Gait exam (Neuro): Normal gait present Sensory Exam: No Sensory deficit (Neuro) Psych Appearance: grossly normal Affect: normal affect Attitude: cooperative Thought process: Normal thought process present Coding Level of Care Code Est Pt Level 4 (51231) Diagnoses Postablative hypothyroidism E89.0 Fatigue R53.83 Dry skin dermatitis L85.3 Assessment & Plan Assessment & Plan (1) Postablative hypothyroidism: Code(s): E89.0 - Postprocedural hypothyroidism Category: Medical Plan: Recent TSH is significantly elevated, 37.74, free T4 his low, less than 0.42. Levothyroxine 200 mcg daily ordered; advised to take as prescribed and with a full glass of water in an empty stomach, 1 hour before other medications or meal. Perform TSH/T4 blood work a few days before next visit. Follow-up in 4 weeks or sooner with symptoms or concerns. Verbalized understanding and agreed with the plan. (2) Fatigue: Code(s): R53.83 - Other fatigue Category: Medical Plan: Reports fatigue and dry itchy skin to his arms and behind his knees since he stopped taking levothyroxine. He has been using lotion without improvement. Likely attributed to poorly managed hypothyroidism with elevated TSH and low free T4. May improve once TSH/free T4 is normal. Advised to take levothyroxine as prescribed and follow-up as planned. Return with worsening or new signs and symptoms. Verbalized understanding and agreed with the plan. (3) Dry skin dermatitis: Code(s): L85.3 - Xerosis cutis Category: Medical Plan: Plan as above. Orders: Orders TSH reflex Free T4 4 Weeks E89.0 - Postprocedural hypothyroidism Medications: Refilled levothyroxine 200 mcg PO DAILY 30 tabs 1RF 30 days
[2025-04-24 12:50] VITALS: BP 121/64; PULSE 85; RESP 16; TEMP 36.9; O2SAT 98
== END 2025-04-24 13:18 | disposition home or self-care (01) ==
LOC: HO.HMCFM 12:46
PROVIDERS: PCP Nurse Practitioner Family; Visit Provider Nurse Practitioner Family
DX: E89.0 Postprocedural hypothyroidism (principal); R53.83 Other fatigue; L85.3 Xerosis cutis

== ENCOUNTER → 2025-04-24 12:45 | Outpatient (BNVA) | payer OTHER, SELFPAY | PROVIDERS: PCP Nurse Practitioner Family; Visit Provider Nurse Practitioner Family | DX: E03.9 Hypothyroidism, unspecified (principal); R53.83 Other fatigue; L85.3 Xerosis cutis; Z79.899 Other long term (current) drug therapy | CPT/HCPCS: 99212 ==